=== PATIENT | female | born 1945 | race Caucasian/White ===

== ENCOUNTER → 2017-01-23 | Outpatient (CLI) | payer OTHER, BC ==
[~2017-01-23] MED LIST: ATEN25TA PO; INSDGI SC; LISI40TA PO; NVLGI SC
--- NOTE | 2017-01-23 10:23 | DIAGNOSTIC IMAGING REPORT ---
CHEST 2 VIEWS ROUTINE CLINICAL HISTORY: D49.519 Renal neoplasm preoperative evaluation COMPARISON STUDY: 01/30/2016 FINDINGS: Mild stable cardiomegaly. Diaphragms smooth. Lungs are considered clear. IMPRESSION: No acute process. No change from the prior exam. Electronically signed by: John Meneses M.D. 01/23/2017 10:22 AM Dictated Date/Time: 01/23/2017 10:21 AM
[2017-01-23 10:37] LABS: ALT/SGPT 47 U/L (12-78); AST/SGOT 42 U/L (15-37); BLOOD UREA NITROGEN 42 mg/dl (7-18); BUN/CREATININE RATIO 20.8 (10-20); CALCIUM 8.7 mg/dl (8.5-10.1); CARBON DIOXIDE 29 mmol/L (21-32); CHLORIDE 107 mmol/L (98-107); GLUCOSE 282 mg/dl (70-99); POTASSIUM 4.3 mmol/L (3.5-5.1); SODIUM 142 mmol/L (136-145)
[2017-01-23 10:40] LABS: ALB/GLOB RATIO 0.7 (0.9-2); ALKALINE PHOSPHATASE 146 U/L (45-117)
== END | disposition home or self-care (01) ==
LOC: C.RAD 09:40
PROVIDERS: ATTEND Urology
DX: D49.519 Neoplasm of unspecified behavior of unspecified kidney (principal)

== ENCOUNTER → 2017-01-24 | Outpatient (CLI) | payer OTHER, BC ==
--- NOTE | 2017-01-24 07:43 | DIAGNOSTIC IMAGING REPORT ---
ABDOMINAL ULTRASOUND COMPLETE HISTORY: D49.519 Renal neoplasm. COMPARISON: Abdominal MRI 01/30/2016. FINDINGS: Pancreas: The pancreas demonstrates a normal echotexture. Liver: Not well visualized due to the patient's body habitus but appears echogenic consistent with fatty change. Gallbladder: The gallbladder is surgically absent. CBD: Difficult to visualize but appears to measure 6 mm. Kidneys: The right kidney is absent. The left kidney is not well visualized but appears to measure 11 cm in length. No definite left-sided hydronephrosis. Spleen: Enlarged measuring 16 cm in length. Aorta: Not identified. IVC: Not identified. IMPRESSION: 1. Suboptimal evaluation of the abdomen due to the patient's body habitus. 2. Prior cholecystectomy. 3. The right kidney is absent. 4. Splenomegaly which has increased in size. 5. Hepatic steatosis. Electronically signed by: Salbador Mcdermott M.D. 01/24/2017 7:42 AM Dictated Date/Time: 01/24/2017 7:38 AM
[2017-01-24 10:01] LABS: ALT/SGPT 46 U/L (12-78); BLOOD UREA NITROGEN 42 mg/dl (7-18); BUN/CREATININE RATIO 23.1 (10-20); CALCIUM 9.2 mg/dl (8.5-10.1); CARBON DIOXIDE 26 mmol/L (21-32); CHLORIDE 108 mmol/L (98-107); GLUCOSE 125 mg/dl (70-99); SODIUM 142 mmol/L (136-145)
[2017-01-24 10:04] LABS: ALB/GLOB RATIO 0.7 (0.9-2); ALKALINE PHOSPHATASE 131 U/L (45-117); AST/SGOT 45 U/L (15-37)
== END | disposition home or self-care (01) ==
LOC: C.ULTR 06:56
PROVIDERS: ATTEND Urology
DX: D49.519 Neoplasm of unspecified behavior of unspecified kidney (principal); K76.0 Fatty (change of) liver, not elsewhere classified

== ENCOUNTER → 2018-02-19 | Outpatient (CLI) | payer OTHER, BC ==
--- NOTE | 2018-02-19 09:03 | DIAGNOSTIC IMAGING REPORT ---
ABDOMEN WITHOUT CONTRAST CLINICAL HISTORY: D49.519 Renal [id number] Renal cell carcinomasolitary kidney- renal cell carcinoma TECHNIQUE: Imaging was performed without IV contrast enhancement. COMPARISON STUDY: No previous studies for comparison. FINDINGS: Is examination is unchanged compared to the prior study of 01/30/2016. Liver remains uniform. Small hepatic cysts are unchanged. There is no intrahepatic biliary ductal distention. Mild stable splenomegaly. Right kidney again is surgically absent. Left kidney shows no evidence for hydronephrosis. Several small simple cysts are present. A mildly proteinaceous cyst of the interpolar region of the left kidney is unchanged. Bowel pattern is nonobstructive. There is no significant adenopathy. Pancreas is uniform throughout. Signal characteristics of the osseous structures are unremarkable. IMPRESSION: 1. Stable unchanged exam compared to the prior study. 2. Several small hepatic as well as left renal cysts unchanged. 3. The proteinaceous cyst of the interpolar region of the left kidney is also unchanged. 4. Prior right nephrectomy. 5. Study otherwise is unremarkable. The above report was generated using voice recognition software. It may contain grammatical, syntax or spelling errors. Electronically signed by: John Meneses M.D. 02/19/2018 9:01 AM Dictated Date/Time: 02/19/2018 8:53 AM
== END | disposition home or self-care (01) ==
LOC: C.MRI 07:38
PROVIDERS: ATTEND Urology
DX: D49.519 Neoplasm of unspecified behavior of unspecified kidney (principal); C64.9 Malignant neoplasm of unspecified kidney, except renal pelvis; K76.89 Other specified diseases of liver